=== PATIENT | male | born 1990 | race Caucasian/White ===

== ENCOUNTER 2022-02-05 13:35 | Emergency (ER) | payer OTHER, SELFPAY ==
[2022-02-05 13:45] VITALS: BP 132/82; PULSE 85; RESP 18; TEMP 37.7; O2SAT 98
--- NOTE | 2022-02-05 13:54 | ED.URI ---
HPI - URI/Sore Throat General Chief Complaint: Upper Respiratory Infection Stated Complaint: fever,bodyache Time Seen by Provider: 02/05/22 13:54 History of Present Illness HPI Narrative: Judson Quintanilla is a 31-year-old male who comes to [facility] with complaints of fatigue headache fever that is intermittently low-grade to higher, symptoms started yesterday. The patient denies sore throat has no cough but states that he is feels fatigued and generally not well. He has no pre-existing conditions and he is not high risk; he is not under treatment of a doctor for any conditions Related Data Home Medications Medication Instructions Recorded Confirmed No Home Medications 07/24/21 02/05/22 Allergies Allergy/AdvReac Type Severity Reaction Status Date / Time No Known Allergies Allergy Verified 02/05/22 13:53 Review of Systems Review of Systems: CONSTITUTIONAL: Denies fever, chills, sweats. Has fatigue and low-grade fever here EYES: Denies visual changes, redness, discharge. ENT: Denies rhinorrhea, mild congestion, sore throat, otalgia. CARDIOVASCULAR: Denies chest pain, palpitations, edema. RESPIRATORY: Denies dyspnea, wheezing, cough GASTROINTESTINAL: Denies abdominal pain, nausea, vomiting, diarrhea. GENITOURINARY: Denies dysuria, hematuria, abnormal discharge SKIN: Denies rash or itching. NEUROLOGIC: Denies numbness, or focal weakness. PSYCHIATRIC: Denies anxiety or depression. Complaining of body aches headache intermittently PMFSH Past Medical History Medical History Allergies Encounter to establish care Fatigue GERD (gastroesophageal reflux disease) Left elbow pain Seasonal allergies Family History Family History Father Hypertension Grandparent Hypertension Family history of primary malignant neoplasm of liver Mother Family history of allergic disorder Social History Social History Smoking status: Never smoker Alcohol intake: current Drinks per week: 10 Alcohol use details: beer Substance use: never Substance use type: does not use Comments At time of signature, I agree with nursing past medical, surgical, social and family history. There is no relevant family history pertinent to the presenting complaint. Exam Narrative: GENERAL: This is a well-nourished, well-developed patient, in mild distress. Low-grade fever HEAD: normocephalic, atraumatic. EYES Sclera clear/white. Vision is grossly intact. EARS: External ears normal, auditory canals clear and without drainage, TMs normal without perforation. Hearing grossly intact. NOSE: External nose normal without nasal discharge, nares without redness, mild rhinorrhea. THROAT: Mucous membranes moist, posterior pharynx mild erythema NECK: Neck supple, non-tender CARDIOVASCULAR: Regular rate and rhythm without murmurs, gallops, or rubs. RESPIRATORY: Clear to auscultation. Breath sounds equal bilaterally. No wheezes, rales, or rhonchi. GASTROINTESTINAL: Not done SKIN: warm, intact with no suspicious lesions or rash, good texture and turgor. NEURO: awake, alert, and oriented to person, place and time. There were no obvious focal neurologic abnormalities. Steady gait EXTREMITIES: Normal range of motion. BACK: Nontender without deformity Course Course Emergency Course: Patient comes with 36 hours of fever fatigue and generally not feeling well patient is unvaccinated against COVID but is unaware of exposure Rapid COVID test done Sent for PCR Given instructions about 10 days isolation and Tylenol for pain and body aches [id number] medication for cough and congestion Level of Care: Express Care Visit Vital Signs Vital signs: Vital Signs Temperature 99.8 F H 02/05/22 13:45 Pulse Rate 85 02/05/22 13:45 Respiratory Rate 18 02/05/22 13:45 Blood Pressure 132/82
[2022-02-05 20:03] LABS: SARS-CoV-2 RNA PCR Negative
== END 2022-02-05 14:11 | disposition home or self-care (01) ==
PROVIDERS: Emergency Provider Nurse Practitioner; PCP Family Medicine
DX: J06.9 Acute upper respiratory infection, unspecified (principal); Z20.822 Contact with and (suspected) exposure to COVID-19; K21.9 Gastro-esophageal reflux disease without esophagitis
CPT/HCPCS: 87426; 99213; C9803; G0463; U0003; U0005

== ENCOUNTER → 2024-04-21 09:28 | Outpatient (CLI) | payer OTHER, SELFPAY ==
--- NOTE | ~2024-04-21 | XR_ITS ---
EXAMINATION: XR elbow LT min 3V DATE: 04/21/2024 09:40 INDICATION: Left elbow pain. TECHNIQUE: 4 views of left elbow were obtained. COMPARISON: None. FINDINGS: Bone alignment is normal. No fracture. Joint spaces are normal. There is an enthesophyte at lateral humeral epicondyle. No elbow joint effusion. IMPRESSION: 1. No fracture. Reviewed, dictated and finalized at location A. IMPRESSION: 1. No fracture.
== END ==
LOC: EXPTROY 09:31
PROVIDERS: PCP Nurse Practitioner Family; Visit Provider Nurse Practitioner Family
DX: M25.522 Pain in left elbow (principal)
CPT/HCPCS: 73080